=== PATIENT | male | born 1980 | race African-American/Black ===

== ENCOUNTER 2020-02-12 15:31 | Emergency (ER) | payer MEDICAID, SELFPAY ==
--- NOTE | 2020-02-12 15:55 | ED.GENADULT ---
HPI - General Adult General Chief complaint: Dental/Oral Stated complaint: tooth pain Time Seen by Provider: 02/12/20 16:34 Source: patient Mode of arrival: ambulatory Limitations: no limitations History of Present Illness HPI narrative: 40-year-old male patient presents to the [facility] with complaints of dental pain to the bottom left back molar. Patient states he thinks his tooth broke off and since there has been having pain for the past 2 weeks. Patient states he has been taking [id number] Tylenol states has not helped much. Patient denies any fevers, body aches or chills. Related Data Allergies Allergy/AdvReac Type Severity Reaction Status Date / Time No Known Allergies Allergy Unknown Verified 05/17/18 13:34 Review of Systems Review of Systems: Narrative: CONSTITUTIONAL: Denies fever, chills, or sweats. EYES: Denies visual changes, redness, or discharge. ENT: Denies rhinorrhea, congestion, sore throat, or otalgia. Positive left lower dental pain x2 weeks CARDIOVASCULAR: Denies chest pain, palpitations, or edema. RESPIRATORY: Denies cough or dyspnea. GASTROINTESTINAL: Denies abdominal pain, nausea, vomiting, or diarrhea. GENITOURINARY: Denies dysuria or hematuria. SKIN: Denies rash or itching. MUSCULOSKELETAL: Denies back pain, joint pain, or myalgia. NEUROLOGIC: Denies headache, numbness, or weakness. PSYCHIATRIC: Denies anxiety or depression. PMFSH Comments At the time of my signature I agree with nursing past medical history, surgical, social, and family history. There is no relevant family history pertinent to the presenting complaint. Exam Narrative: Exam Narrative: GENERAL: Well-appearing, well-nourished, and in no acute distress. HEAD: Normocephalic, atraumatic. EYES: PERRLA and EOMI. ENT: Nares clear, no rhinorrhea or epistaxis. Mucous membranes moist. Patient does have a broken tooth to the back left lower molar with surrounding erythema and it looks like some yellow discharge coming from the tooth area. No swelling noted to the outside of the face. Patient able talk in clear complete sentences and tolerate secretions well. NECK: Supple. No lymphadenopathy CHEST: Clear to auscultation. No respiratory distress. HEART: Regular rate and rhythm. No murmur heard. Normal peripheral pulses. ABDOMEN: Soft, nontender, nondistended, normal active bowel sounds. EXTREMITIES: Normal range of motion. No edema. SKIN: Warm, dry, no rash. NEURO: No focal deficits. Alert and oriented x3. Course Vital Signs Vital signs: Vital Signs Temperature 37.2 C 02/12/20 15:59 Pulse Rate 62 02/12/20 15:59 Respiratory Rate 02/12/20 15:59 Blood Pressure 126/77 02/12/20 15:59 Pulse Oximetry 100 02/12/20 15:59 Temperature 37.2 C 02/12/20 15:59 Pulse Rate 62 02/12/20 15:59 Respiratory Rate 02/12/20 15:59 Blood Pressure 126/77 02/12/20 15:59 Pulse Oximetry 100 02/12/20 15:59 Vital signs reviewed. Medical Decision Making Differential Diagnosis Differential Diagnosis: Differential diagnosis: Dental caries, periodontal disease, avulsed tooth, tooth infections, mandibular infection, Heriberto's angiana, upper tooth infection, dry socket, gingivitis, acute necrotizing ulcerative gingivitis, sialolithiasis. Discussed with patient that it does appear that he is most likely a dental abscess. Discussed with him that our plan of care today is to discharge him home with an antibiotic for the infection as well as little bit of tramadol help with the pain. Dental list was provided to the patient so that he can follow-up in regards to extracting that tooth. Patient verbalized understanding at this time denies any other questions or concerns. Vital Signs Vital Signs: Vital Signs Temperature 37.2 C 02/12/20 15:59 Pulse Rate 62 02/12/20 15:59 Respiratory Rate 02/12/20 15:59 Blood Pressure 126/77 02/12/20 15:59 Pulse Oximetry 100 02/12/20 15:59 Temperature 37.2 C 02/12/20
[2020-02-12 15:59] VITALS: BP 126/77; PULSE 62; RESP 20; TEMP 37.2; O2SAT 100
== END 2020-02-12 16:41 | disposition home or self-care (01) ==
PROVIDERS: Emergency Provider Nurse Practitioner Family
DX: K04.7 Periapical abscess without sinus (principal)
CPT/HCPCS: 99213; G0463

== ENCOUNTER 2021-08-29 15:39 | Emergency (ER) | payer BC, SELFPAY ==
[2021-08-29 15:49] VITALS: BP 130/74; PULSE 58; RESP 16; TEMP 36.7; O2SAT 100
--- NOTE | 2021-08-29 15:49 | ED.DENTAL ---
HPI - Dental/Oral General Chief complaint: Dental/Oral Stated complaint: Tooth Pain Time Seen by Provider: 08/29/21 15:49 Source: patient, RN notes reviewed and old records reviewed Mode of arrival: ambulatory Limitations: no limitations History of Present Illness HPI Narrative: 41-year-old male presents to the [facility] with complaints of dental pain to the right upper molar. Has very poor dentition. Has not seen a dentist in a long time. States he has an appointment [facility] on , 3 days from now. Patient is requesting stronger pain medicine than just Tylenol. Related Data Allergies Allergy/AdvReac Type Severity Reaction Status Date / Time No Known Allergies Allergy Unknown Verified 08/29/21 15:58 Review of Systems Review of Systems: All systems reviewed & are unremarkable except as noted in HPI and below Constitutional: Constitutional: Reports no additional constitutional complaints, Denies chills and Denies fever(s) Eyes: Eyes: Reports no additional eye complaints ENT: Reports as per HPI and Denies sore throat Comments: Right upper dental pain, molars Cardiovascular: Cardiovascular: Reports no additional cardiovascular complaints and Denies chest pain Respiratory: Respiratory: Reports no additional respiratory complaints, Denies cough and Denies dyspnea Gastrointestinal: Gastrointestinal: Reports no additional gastrointestinal complaints, Denies abdominal pain, Denies nausea and Denies vomiting Musculoskeletal: Musculoskeletal: Reports no additional musculoskeletal complaints Integumentary/Breasts: Skin/Breast: Reports system reviewed and no additional complaints, except as docu Neurologic: Reports system reviewed and no additional complaints, except as documented Psychiatric: Psychiatric: Reports no additional psychiatric complaints Allergic/Immunologic: Allergic/Immunologic: Reports no additional allergic/immunologic complaints Exam Const: General: healthy appearing, no acute distress and alert Nutritional Appearance: well nourished Orientation/consciousness: patient oriented x3 Limitations: no limitations HENMT: Head: normal to inspection Ears: external ears normal, TM's normal bilaterally and EAC's normal Teeth image: 1. Decayed, swollen gingiva. Gingiva is receding, roots noted on tooth 2 and 3 with decay at the root Overall very poor dentition Throat: posterior oropharynx normal Eyes: Conjunctivae: conjunctivae normal Pupils: Equal, round and reactive pupils present Neck: Neck: normal visual inspection, no lymphadenopathy and no meningeal signs Chest: Chest palpation & inspection: normal inspection of the chest Resp: Effort & Inspection: normal respiratory effort Auscultation: clear to auscultation bilaterally Cardio: Rate: regular rate Rhythm: regular rhythm Back/Spine/Pelvis: Back: no CVA tenderness Skin: General skin exam: normal color Rashes: no rashes Wounds: no wounds Neuro: General: patient oriented x3, moves all extremities, no meningeal signs and no focal motor deficits Speech: normal speech Gait exam (Neuro): Normal gait present Extrem: General: normal to inspection and no pedal edema Psych: Appearance: grossly normal and well kempt Mental Status: mental status grossly normal Affect: normal affect Attitude: cooperative Thought content: Yes Normal thought content present Course Course Emergency Course: Discharge instructions reviewed with patient, as well as provided in writing per nursing staff. The instructions also include specific and strict return/GO TO THE ER as well as f/u information. All questions have been answered, and the patient deny any further questions with discharge and discharge plan. Vital Signs Vital signs: Vital Signs Temperature 98.1 F 08/29/21 15:49 Pulse Rate 58 L 08/29/21 15:49 Respiratory Rate 16 08/29/21 15:49 Blood Pressure 130/74 08/29/21 15:49 Pulse Oximetry 100 08/29/21 15:49 Temper
[2021-08-29] MEDS: IBUPROFEN 600 MG TABLET PO (16:02)
== END 2021-08-29 16:04 | disposition home or self-care (01) ==
PROVIDERS: Emergency Provider Nurse Practitioner
DX: K02.9 Dental caries, unspecified (principal); K04.7 Periapical abscess without sinus
CPT/HCPCS: 99213; A9270; G0463

== ENCOUNTER 2022-01-28 16:46 | Emergency (ER) | payer BC, SELFPAY ==
[2022-01-28 17:03] VITALS: BP 122/79; PULSE 67; RESP 16; TEMP 36.6; O2SAT 99
--- NOTE | 2022-01-28 17:13 | ED.DENTAL ---
HPI - Dental/Oral General Chief complaint: Dental/Oral Stated complaint: TOOTH PAIN Time Seen by Provider: 01/28/22 17:14 Source: patient Mode of arrival: ambulatory Limitations: no limitations History of Present Illness HPI Narrative: Mr. Martínez is a 41-year-old male patient presenting to the clinic today with complaints of dental pain to the right lower jaw/tooth #17. He reports that this has been going on and off for the past couple years and has been unable to see a dentist for this. He reports that he has an appointment this week for the dentist just down the road. He reports that he noted that his jaw/gum started to swell within the last 3 days. He denies any fever or chills. MD Complaint: tooth pain Location: Tooth # (17) Related Data Allergies Allergy/AdvReac Type Severity Reaction Status Date / Time No Known Allergies Allergy Unknown Verified 01/28/22 17:16 Review of Systems Review of Systems: Pertinent positives per HPI. Patient denies any fever, chills, rash, headache, visual changes, dizziness, cough, runny nose, sore throat, shortness of breath, chest pain, palpitations, nausea, vomiting, diarrhea, constipation, abdominal pain, or any urinary issues. PMFSH Comments At the time of my signature, I reviewed and agree with the nursing past medical, surgical, social, and family history. There is no relevant family history pertinent to the patient complaint. Exam Narrative: General: Well-developed, well nourished, in no apparent distress Head: Normocephalic, atraumatic Eyes: Pupils equally round and reactive to light bilaterally, EOM intact, sclera and conjunctive clear, no discharge, lids normal Ears: TMs intact and clear, ear canals clear, no drainage, grossly hearing normal. Nose: Nares patent, no discharge, no inflammation, no sinus tenderness. Mouth: Oropharynx without lesions or masses, poor dentition, MMM. #17 tooth broken decayed with redness and swelling over the gums. Neck: Supple, trachea midline, no enlargement of anterior or posterior cervical nodes, no thyroid masses or goiter palpable. Cardio: Regular rate and rhythm, s1 and s2 normal, no murmur appreciated. Resp: Clear to auscultation bilaterally anteriorly and posteriorly, no rhonchi, rales, wheezing or rubs Course Course Emergency Course: Portions of this record may have been created with voice recognition software. Level of Care: Express Care Visit Vital Signs Vital signs: Vital Signs Temperature 36.6 C 01/28/22 17:03 Pulse Rate 67 01/28/22 17:03 Respiratory Rate 16 01/28/22 17:03 Blood Pressure 122/79 01/28/22 17:03 Pulse Oximetry 99 01/28/22 17:03 Temperature 36.6 C 01/28/22 17:03 Pulse Rate 67 01/28/22 17:03 Respiratory Rate 16 01/28/22 17:03 Blood Pressure 122/79 01/28/22 17:03 Pulse Oximetry 99 01/28/22 17:03 Vital signs reviewed MDM - Dental/Oral MDM Narrative Medical decision making narrative: At the time of assessment patient is resting comfortably on the exam table. He reports that he has left lower dental pain that has been ongoing going on for 3 days. He has some jaw swelling. I suspect that he may have the beginning of a dental abscess and will give him prescription for some Augmentin. He is to finish the course of Augmentin and follow-up with his dentist. Supportive measures were discussed with patient he voiced understanding of discharge instructions. Differential Diagnosis Differential diagnosis: Likely gingival abscess, dental caries, toothache, dental abscess, fracture of tooth, aphthous ulcer and other Discharge Plan Discharge Clinical Impression: Dental abscess Patient Disposition: Home, Self-Care Condition: Stable Instructions: Antibiotic Form, Dental Abscess (ED) Additional Instructions: Take prescription medications only as prescribed Increase fluids and stay well hydrated Tylenol/motrin for pain/fever Augmentin as RX Follow up with your dentist a
== END 2022-01-28 17:30 | disposition home or self-care (01) ==
PROVIDERS: Emergency Provider Nurse Practitioner Family
DX: K04.7 Periapical abscess without sinus (principal)
CPT/HCPCS: 99213; G0463

== ENCOUNTER 2022-05-12 14:41 | Emergency (ER) | payer BC, SELFPAY ==
[2022-05-12 14:50] VITALS: BP 119/76; PULSE 62; RESP 16; TEMP 37; O2SAT 99
--- NOTE | 2022-05-12 14:51 | ED.DENTAL ---
HPI - Dental/Oral General Chief complaint: Dental/Oral Stated complaint: tooth pain Time Seen by Provider: 05/12/22 14:52 Source: patient Mode of arrival: ambulatory History of Present Illness HPI Narrative: 42 y/o male presented for c/o right upper dental pain for 3 days. Endorses history of abscesses. States the gum area has felt swollen with mild pain, no drainage. Has not taken anything for symptoms. Denies sinus pressure/congestion, n/v/d/f/c. Complaint: tooth pain Related Data Allergies Allergy/AdvReac Type Severity Reaction Status Date / Time No Known Allergies Allergy Unknown Verified 05/12/22 14:50 Review of Systems Review of Systems: CONSTITUTIONAL: Denies body aches, fever, chills ENT: Denies rhinorrhea, congestion, sore throat, or otalgia. Reports dental pain CARDIOVASCULAR: Denies chest pain, palpitations RESPIRATORY: Denies cough or dyspnea. SKIN: Denies rash, itching, or wounds. MUSCULOSKELETAL: Denies myalgia. NEUROLOGIC: Denies headache, numbness, tingling, or weakness. PMFSH Comments At time of signature, I have reviewed and agree with nursing past medical, surgical, social and family history unless otherwise noted. Please see nursing chart for further information. There is no relevant family history pertinent to the presenting complaint Exam Narrative: GENERAL: Appears in pain; no acute distress. HEAD: Normocephalic, atraumatic. EYES: EOMI. No redness or drainage. Conjunctivae normal. ENT: Right upper dental pain location of #3 mild gum swelling no active drainage, multiple caries and plaque extending above the gum line. Mucous membranes pink and moist. CHEST: No respiratory distress. SKIN: Warm, dry no facial redness/swelling Course Course Emergency Course: Patient is aware of diagnosis, understands and agrees to treatment plan. Anticipatory guidance given. Patient agrees to follow-up as directed and is aware of reasons to seek care at the emergency department. Portions of this record may have been created with voice recognition software Level of Care: Express Care Visit Vital Signs Vital signs: Vital Signs Temperature 98.6 F 05/12/22 14:50 Pulse Rate 62 05/12/22 14:50 Respiratory Rate 16 05/12/22 14:50 Blood Pressure 119/76 05/12/22 14:50 Pulse Oximetry 99 05/12/22 14:50 Oxygen Delivery Room Air 05/12/22 14:50 Temperature 98.6 F 05/12/22 14:50 Pulse Rate 62 05/12/22 14:50 Respiratory Rate 16 05/12/22 14:50 Blood Pressure 119/76 05/12/22 14:50 Pulse Oximetry 99 05/12/22 14:50 Oxygen Delivery Room Air 05/12/22 14:50 MDM - Dental/Oral MDM Narrative Medical decision making narrative: Patients pain and complaint and physical findings are consistent with dentalgia. advised supportive measures, abx if no improvement or worsening symptoms. appropriate for discharge home with dental follow up. Differential Diagnosis Differential diagnosis: Likely gingival abscess, dental caries, toothache, dental abscess, fracture of tooth and aphthous ulcer Discharge Plan Discharge Clinical Impression: Toothache Patient Disposition: Home, Self-Care Condition: Stable Instructions: Antibiotic Form, Dental Abscess (ED) Additional Instructions: Take antibiotic as directed May apply heat or ice to the face Gentle brushing and flossing. Rinse mouth with warm salt water at least 2 times a day. Alternate Tylenol and ibuprofen as needed for pain Follow-up with the dentist as soon as possible--see the list provided Go to the ER for worsening symptoms or concerns. Prescriptions: New ibuprofen 800 mg tablet 800 mg PO TID PRN (Reason: pain) Qty: 15 0RF penicillin V potassium 500 mg tablet 500 mg PO Q12H 7 Days Qty: 14 0RF Follow-up/Referrals: UNKNOWN,DOCTOR [Primary Care Provider] - Time of Disposition: 15:00
== END 2022-05-12 15:02 | disposition home or self-care (01) ==
PROVIDERS: Emergency Provider Nurse Practitioner Family
DX: K08.89 Other specified disorders of teeth and supporting structures (principal)
CPT/HCPCS: 99213; G0463

== ENCOUNTER 2022-05-20 10:27 | Emergency (ER) | payer BC, SELFPAY ==
[2022-05-20 10:58] VITALS: BP 127/85; PULSE 53; RESP 16; TEMP 36.1; O2SAT 99
--- NOTE | 2022-05-20 11:35 | ED.DENTAL ---
HPI - Dental/Oral General Chief complaint: Dental/Oral Stated complaint: tooth pain Time Seen by Provider: 05/20/22 11:35 History of Present Illness HPI Narrative: Asim Martínez is a 42 yo male with a PMH of dental pain recurrent. [facility] for pain medication stronger than ibuprofen. He states he does not need any additional antibiotics and the pain is on the right upper molar which is tooth 12 and left lower tooth 30 both appear to be old fractured teeth that we will need extraction has an appt with dentist on 06/20 Related Data Allergies Allergy/AdvReac Type Severity Reaction Status Date / Time No Known Allergies Allergy Unknown Verified 05/20/22 11:00 Review of Systems Review of Systems: CONSTITUTIONAL: Denies fever, chills, sweats. EYES: Denies visual changes, redness, discharge. ENT: Denies rhinorrhea, congestion, sore throat, otalgia. CARDIOVASCULAR: Denies chest pain, palpitations, edema. RESPIRATORY: Denies dyspnea, wheezing, cough GASTROINTESTINAL: Denies abdominal pain, nausea, vomiting, diarrhea. GENITOURINARY: Denies dysuria, hematuria, abnormal discharge SKIN: Denies rash or itching. NEUROLOGIC: Denies numbness, or focal weakness. PSYCHIATRIC: Denies anxiety or depression. Needs more meds for Dental pain PMFSH Social History Social History (Updated 05/20/22 @ 11:41 by Sofia Montes CNP) Smoking status: Current every day smoker Substance use: never Comments At time of signature, I agree with nursing past medical, surgical, social and family history. There is no relevant family history pertinent to the presenting complaint. Exam Narrative: GENERAL: This is a well-nourished, well-developed patient, in mild distress. HEAD: normocephalic, atraumatic. EYES: Sclera clear/white. Vision is grossly intact. EARS: External ears normal, auditory canals clear and without drainage, TMs normal without perforation. Hearing grossly intact. NOSE: External nose normal without nasal discharge, nares without redness, no rhinorrhea. THROAT: Mucous membranes moist, poor dentition throughout mouth with multiple problems with fractures and missing teeth NECK: Neck supple, non-tender CARDIOVASCULAR: Regular rate and rhythm without murmurs, gallops, or rubs. RESPIRATORY: Clear to auscultation. Breath sounds equal bilaterally. No wheezes, rales, or rhonchi. GASTROINTESTINAL: Abdomen soft, non-tender, SKIN: warm, intact with no suspicious lesions or rash, good texture and turgor. NEURO: awake, alert, and oriented to person, place and time. There were no obvious focal neurologic abnormalities. Steady gait EXTREMITIES: Normal range of motion. BACK: Nontender without deformity Course Course Emergency Course: Patient comes with dental pain and has been on antibiotics for 8 days and needs something stronger than Tylenol or ibuprofen for pain Discussed situation with patient and agreed to write for Tylenol 3 Level of Care: Express Care Visit Vital Signs Vital signs: Vital Signs Temperature 96.9 F L 05/20/22 10:58 Pulse Rate 53 L 05/20/22 10:58 Respiratory Rate 16 05/20/22 10:58 Blood Pressure 127/85 05/20/22 10:58 Pulse Oximetry 99 05/20/22 10:58 Oxygen Delivery Room Air 05/20/22 10:58 Temperature 96.9 F L 05/20/22 10:58 Pulse Rate 53 L 05/20/22 10:58 Respiratory Rate 16 05/20/22 10:58 Blood Pressure 127/85 05/20/22 10:58 Pulse Oximetry 99 05/20/22 10:58 Oxygen Delivery Room Air 05/20/22 10:58 MDM - Dental/Oral Differential Diagnosis Differential diagnosis: Likely gingival abscess, dental caries, dental abscess, fracture of tooth and other Critical Care Time Critical Care Time Critical Care Time: No Discharge Plan Discharge Clinical Impression: Fracture of tooth, Dental abscess Patient Disposition: Home, Self-Care Condition: Stable Instructions: Dental Abscess (ED) Additional Instructions: Use Tylenol 3 for pain. Pain should improve with the a
== END 2022-05-20 11:54 | disposition home or self-care (01) ==
PROVIDERS: Emergency Provider Nurse Practitioner
DX: S02.5XXA Fracture of tooth (traumatic), initial encounter for closed fracture (principal); X58.XXXA Exposure to other specified factors, initial encounter; K04.7 Periapical abscess without sinus; F17.200 Nicotine dependence, unspecified, uncomplicated
CPT/HCPCS: 99213; G0463

== ENCOUNTER 2022-08-29 15:05 | Emergency (ER) | payer BC, SELFPAY | END 2022-08-29 16:02 | disposition left against medical advice (07) | LOC: ANHED 15:42 | DX: Z53.21 Procedure and treatment not carried out due to patient leaving prior to being seen by health care provider (principal) | CPT/HCPCS: 99199 ==

== ENCOUNTER 2022-09-04 11:29 | Emergency (ER) | payer BC, SELFPAY ==
[2022-09-04 11:35] VITALS: BP 120/75; PULSE 76; RESP 12; TEMP 36.4; O2SAT 100
--- NOTE | 2022-09-04 11:36 | ED.GENADULT ---
HPI - General Adult General Chief complaint: Back Pain/Injury Stated complaint: Back Pain Time Seen by Provider: 09/04/22 11:36 Source: patient, RN notes reviewed and old records reviewed Mode of arrival: ambulatory Limitations: no limitations History of Present Illness HPI narrative: [age] male presents to the [facility] with complaints of right lower back pain. Denies any loss retention of bowel or bladder. No numbness or tingling in extremities. No saddle anesthesia. Walks with a normal gait. Patient states on August 20 he got her shoveling. Was transported to [facility] where he had a whole bunch of ?tests. ? patient reports all those tests were normal and he was sent home and told to take Tylenol or Motrin. States that he has been taking Tylenol and not getting any relief. Has not followed up with her primary care provider. No midline tenderness. No bruising swelling or erythema noted to the area. Unable to reproduce pain with palpation Onset (ago): day(s) Related Data Allergies Allergy/AdvReac Type Severity Reaction Status Date / Time No Known Allergies Allergy Unknown Verified 09/04/22 11:31 Review of Systems Review of Systems: All systems reviewed & are unremarkable except as noted in HPI and below Constitutional: Constitutional: Reports no additional constitutional complaints Eyes: Eyes: Reports no additional eye complaints ENT: Reports system reviewed and no additional complaints, except as documented Cardiovascular: Cardiovascular: Reports no additional cardiovascular complaints, Denies chest pain and Denies dyspnea Respiratory: Respiratory: Reports no additional respiratory complaints, Denies chest congestion, Denies cough and Denies dyspnea Gastrointestinal: Gastrointestinal: Reports no additional gastrointestinal complaints, Denies abdominal pain, Denies nausea and Denies vomiting Musculoskeletal: Musculoskeletal: Reports as per HPI and Reports back pain (Right lower) Integumentary/Breasts: Skin/Breast: Reports system reviewed and no additional complaints, except as docu Neurologic: Reports system reviewed and no additional complaints, except as documented Psychiatric: Psychiatric: Reports no additional psychiatric complaints Allergic/Immunologic: Allergic/Immunologic: Reports no additional allergic/immunologic complaints PMFSH Social History Social History Smoking status: Current every day smoker Substance use: never Comments At the time of my signature, I reviewed and agree with the nursing past medical, surgical, social, and family history. There is no relevant family history pertinent to the patient complaint. Exam Const: General: cooperative, healthy appearing, comfortable, no acute distress, well developed, alert and well nourished Nutritional Appearance: well nourished Orientation/consciousness: patient oriented x3 Limitations: no limitations HENMT: Head: normal to inspection Ears: hearing grossly normal bilaterally and external ears normal Face/Nose/Sinus: Normal external nose present, Normal nares present, Normal nasal mucous membranes and turbinates present and normal facial exam Face and sinus: normal facial exam Mouth: Yes Normal oral and palatal mucosa present, Yes lip normal and Yes moist mucous membranes Eyes: General: appearance normal, both eyes and all related structures Alignment and Position: alignment normal Periorbital: periorbital findings normal Conjunctivae: conjunctivae normal Pupils: Equal, round and reactive pupils present EOM: EOMs intact bilaterally Neck: Neck: normal visual inspection, full ROM, no lymphadenopathy and no meningeal signs Chest: Chest palpation & inspection: normal inspection of the chest Resp: Effort & Inspection: normal respiratory effort and able to speak in complete sentences Auscultation: clear to auscultation bilaterally, no crackles, no rales, no rhonchi and n
== END 2022-09-04 12:07 | disposition home or self-care (01) ==
PROVIDERS: Emergency Provider Nurse Practitioner
DX: S39.012A Strain of muscle, fascia and tendon of lower back, initial encounter (principal); X50.3XXA Overexertion from repetitive movements, initial encounter; Y93.H1 Activity, digging, shoveling and raking; F17.200 Nicotine dependence, unspecified, uncomplicated
CPT/HCPCS: 99213; G0463

== ENCOUNTER 2022-09-22 00:05 | Emergency (ER) | payer BC, SELFPAY ==
[2022-09-22 00:07] VITALS: BP 127/79; PULSE 69; RESP 18; TEMP 36.2; O2SAT 100
--- NOTE | 2022-09-22 00:14 | PC.NURSE ---
Pt was diagnosed with lumbar sprain one month ago while he was shoveling snow at work. He ran out of his baclofen and tylenol #3 and is requesting refills. He ambulates with steady gait. Denies numbness/tingling or loss bowel/bladder.
--- NOTE | 2022-09-22 00:18 | ED.BACK ---
HPI - Back Pain/Injury General Chief Complaint: Back Pain/Injury Stated Complaint: back pain Time Seen by Provider: 09/22/22 00:11 Source: patient, RN notes reviewed and old records reviewed Mode of arrival: ambulatory Limitations: no limitations History of Present Illness HPI Narrative: This is a 42 year old male who presents for evaluation of low back pain. Patient reports several weeks ago he developed low back pain with some heavy lifting. He had evaluation at [facility] at onset of pain and per records everything was normal. She was seen at [facility] 2 weeks ago and he was prescribed ibuprofen and baclofen. He states he does not take ibuprofen because it upsets his stomach. He has been taking old prescription of tylenol with codeine and baclofen. He has come to ER for prescription of baclofen because he has run out. He states his pain is worse with movement. HE denies saddle anesthesis, weakness, numbness or tingling. He also denies urinary issues .H Related Data Allergies Allergy/AdvReac Type Severity Reaction Status Date / Time No Known Allergies Allergy Unknown Verified 09/04/22 11:31 Review of Systems Review of Systems: All systems reviewed & are unremarkable except as noted in HPI and below Constitutional: Constitutional: Denies fatigue and Denies fever(s) Eyes: Eyes: Denies blurry vision ENT: Denies nasal congestion and Denies sinus pressure Cardiovascular: Cardiovascular: Denies chest pain, Denies rapid heart rate, Denies leg edema and Denies dyspnea Respiratory: Respiratory: Denies hemoptysis and Denies dyspnea Gastrointestinal: Gastrointestinal: Denies abdominal pain and Denies melena Musculoskeletal: Musculoskeletal: Reports back pain and Denies numbness Neurologic: Denies Abnormal speech present, Denies focal weakness and Denies numbness Endocrine: Endocrine: Denies fatigue PMFSH Past Medical History Medical History (Updated 09/22/22 @ 00:25 by Linda Flores MD) Patient denies medical problems Social History Social History Smoking status: Current every day smoker Substance use: never Exam Const: General: healthy appearing, no acute distress and alert Nutritional Appearance: well nourished Orientation/consciousness: patient oriented x3 Limitations: no limitations HENMT: Head: normal to inspection Eyes: Conjunctivae: conjunctivae normal Resp: Effort & Inspection: normal respiratory effort Auscultation: clear to auscultation bilaterally Cardio: Rate: regular rate Rhythm: regular rhythm Heart sounds: no murmurs GI: GI Palp: Yes Soft to palpation, No Tenderness to palpation present (GI), No Guarding due to palpation present (GI) and Yes Rigid due to palpation Auscultation: normal bowel sounds Back/Spine/Pelvis: Thoracic/Lumbar Spine: No thoracic spinal tenderness and No lumbar spinal tenderness Skin: General skin exam: normal color Rashes: no rashes Wounds: no wounds Neuro: General: patient oriented x3, moves all extremities and CN's II-XI intact bilaterally Speech: normal speech Gait exam (Neuro): Normal gait present Extrem: General: normal to inspection Psych: Mental Status: mental status grossly normal Affect: normal affect Attitude: cooperative Course Reevaluation(s) Reevaluation #1: I discussed with patient that he will need to follow and get established for evaluation of chronic back at this point. He does not seem to have trauma to suggest fracture. Date: 09/22/22 Time: 00:23 Vital Signs Vital signs: Vital Signs Temperature 97.1 F L 09/22/22 00:07 Pulse Rate 69 09/22/22 00:07 Respiratory Rate 18 09/22/22 00:07 Blood Pressure 127/79 09/22/22 00:07 Pulse Oximetry 100 09/22/22 00:07 Oxygen Delivery Room Air 09/22/22 00:07 Temperature 97.1 F L 09/22/22 00:07 Pulse Rate 77 09/22/22 00:38 Respiratory Rate 16 09/22/22 00:38 Blood Pressure 135/83 09/22/22 00:38 Puls
[2022-09-22 00:38] VITALS: BP 135/83; PULSE 77; RESP 16; O2SAT 99
== END 2022-09-22 00:39 | disposition home or self-care (01) ==
LOC: ANHED 00:32
PROVIDERS: Emergency Provider General Practice
DX: M54.50 Low back pain, unspecified (principal); F17.200 Nicotine dependence, unspecified, uncomplicated
CPT/HCPCS: 99283

== ENCOUNTER 2023-06-27 15:30 | Emergency (ER) | payer BC, SELFPAY ==
[2023-06-27 15:42] VITALS: BP 117/72; PULSE 57; RESP 16; TEMP 36.9; O2SAT 100
[2023-06-27 15:44] VITALS: BP 117/72; PULSE 57; RESP 16; TEMP 36.9; O2SAT 100
--- NOTE | 2023-06-27 16:02 | ED.DENTAL ---
HPI - Dental/Oral General Chief complaint: Dental/Oral Stated complaint: left tooth pain Time Seen by Provider: 06/27/23 15:54 Source: patient Mode of arrival: ambulatory History of Present Illness HPI Narrative: 43-year-old male presented for complaint of left lower dental pain for about 2 days. Endorses broken tooth at the site. He states the pain is mild, not requiring anything for symptoms. Scheduled with dentist next week. Denies jaw swelling, pus/drainage, n/v/d/f/c. Smokes 1ppd. MD Complaint: tooth pain Related Data Allergies Allergy/AdvReac Type Severity Reaction Status Date / Time No Known Allergies Allergy Unknown Verified 06/27/23 15:43 Review of Systems Review of Systems: CONSTITUTIONAL: Denies body aches, fever, chills ENT: Denies rhinorrhea, congestion, sore throat, or otalgia. Reports dental pain CARDIOVASCULAR: Denies chest pain, palpitations RESPIRATORY: Denies cough or dyspnea. SKIN: Denies rash, itching, or wounds. MUSCULOSKELETAL: Denies myalgia. NEUROLOGIC: Denies headache, numbness, tingling, or weakness. [facility] Past Medical History Medical History Patient denies medical problems Social History Social History Smoking status: Current every day smoker Substance use: never Comments At time of signature, I have reviewed and agree with nursing past medical, surgical, social and family history unless otherwise noted. Please see nursing chart for further information. There is no relevant family history pertinent to the presenting complaint Exam Narrative: GENERAL: Appears in pain; no acute distress. HEAD: Normocephalic, atraumatic. EYES: EOMI. No redness or drainage. Conjunctivae normal. ENT: Dental pain location of #18, gum swelling surrounding broken and discolored tooth at the site. no drainage. No external mandible swelling. Multiple broken and missing teeth. Missing approx #19-21. Mucous membranes pink and moist. TMs normal bilaterally. Throat normal. Uvula midline. No trismus. NECK: Normal AROM. No lymphadenopathy. CHEST: No respiratory distress. Clear to auscultation. HEART: Regular rate and rhythm. No murmur appreciated. SKIN: Warm, dry, no rash. Normal skin turgor. NEURO: No focal deficits. Alert and oriented x3. Gait steady. Course Course Emergency Course: Patient is aware of diagnosis, understands and agrees to treatment plan. Anticipatory guidance given. Patient agrees to follow-up as directed and is aware of reasons to seek care at the emergency department. Portions of this record may have been created with voice recognition software Level of Care: Express Care Visit Vital Signs Vital signs: Vital Signs Temperature 98.4 F 06/27/23 15:42 Pulse Rate 57 L 06/27/23 15:42 Respiratory Rate 16 06/27/23 15:42 Blood Pressure 117/72 06/27/23 15:42 Pulse Oximetry 100 06/27/23 15:42 Oxygen Delivery Room Air 06/27/23 15:42 Temperature 98.4 F 06/27/23 15:44 Pulse Rate 57 L 06/27/23 15:44 Respiratory Rate 16 06/27/23 15:44 Blood Pressure 117/72 06/27/23 15:44 Pulse Oximetry 100 06/27/23 15:44 Oxygen Delivery Room Air 06/27/23 15:44 MDM - Dental/Oral MDM Narrative Medical decision making narrative: Patients pain and complaint and physical findings are consistent with dental abscess There are no focal signs of space occupying lesions that are compromising to the airway; no dysphagia, odynophagia, dysphonia, or dyspnea. No uvular deviation or soft palate edema. Patient is non-toxic appearing. The floor of the mouth is soft with no signs of Heriberto's Angina; no induration below mandible, no neck pain. Patient is without trismus or drooling and able to swallow secretions. Advised signs symptoms to go to the ER. Patient is felt appropriate for discharge home with dental follow up as scheduled. Differential Diagn
== END 2023-06-27 16:09 | disposition home or self-care (01) ==
PROVIDERS: Emergency Provider Nurse Practitioner Family
DX: K04.7 Periapical abscess without sinus (principal); F17.200 Nicotine dependence, unspecified, uncomplicated
CPT/HCPCS: 99213; G0463

== ENCOUNTER 2023-09-15 00:54 | Emergency (ER) | payer BC, SELFPAY ==
[2023-09-15 00:59] VITALS: BP 121/78; PULSE 63; RESP 14; TEMP 36.3; O2SAT 99
--- NOTE | 2023-09-15 01:47 | ED.GENADULT ---
HPI - General Adult General Chief complaint: Nausea/Vomiting/Diarrhea Stated complaint: Diarrhea, runny nose, weak, headache Time Seen by Provider: 09/15/23 01:38 History of Present Illness HPI narrative: 43-year-old male presented to the emergency department for evaluation of runny nose, sore throat and congestion. Patient states that the symptoms started last night while he was at work and persisted at the day today. Patient denies any chest pain or shortness of breath denies any fevers. Patient reports his son has similar symptoms and 1 of his coworkers was also sick. Patient has not taken Tylenol or ibuprofen. Related Data Allergies Allergy/AdvReac Type Severity Reaction Status Date / Time No Known Allergies Allergy Unknown Verified 06/27/23 15:43 Review of Systems Review of Systems: All systems reviewed & are unremarkable except as noted in HPI and below PMFSH Past Medical History Medical History Patient denies medical problems Social History Social History Smoking status: Current every day smoker Substance use: never Exam Narrative: APPEARANCE: Well appearing, no pain, no distress, well-nourished. HEAD: normocephalic, atraumatic. EYES: PERRLA/EOMI, conjunctivae clear. NOSE: Normal no drainage EARS:TMS clear with good light reflex. THROAT: Pharynx clear, no exudate. NECK: Supple. No adenopathy, no masses. RESPIRATORY: Airway patent, respirations nonlabored. Clear to auscultation bilaterally, no rales, rhonchi, wheezing. CARDIOVASCULAR: Regular rate and rhythm without murmurs rubs or gallops. ABDOMINAL: Soft, nontender, nondistended, normal bowel sounds MUSCULOSKELETAL: Moves all extremities. Strength/ROM intact, No edema, No calf tenderness. NEURO: Alert. Cranial nerves II through XII intact. Grossly intact SKIN: Warm, dry. Normal Color Course Course Emergency Course: 43-year-old male presented the ED for evaluation for nasal congestion and body aches patient has influenza RSV and COVID were negative Vital Signs Vital signs: Vital Signs Temperature 97.3 F L 09/15/23 00:59 Pulse Rate 63 09/15/23 00:59 Respiratory Rate 14 09/15/23 00:59 Blood Pressure 121/78 09/15/23 00:59 Pulse Oximetry 99 09/15/23 00:59 Oxygen Delivery Room Air 09/15/23 00:59 Temperature 97.3 F L 09/15/23 00:59 Pulse Rate 63 09/15/23 00:59 Respiratory Rate 14 09/15/23 00:59 Blood Pressure 121/78 09/15/23 00:59 Pulse Oximetry 99 09/15/23 00:59 Oxygen Delivery Room Air 09/15/23 00:59 Medical Decision Making Vital Signs Vital Signs: Vital Signs Temperature 97.3 F L 09/15/23 00:59 Pulse Rate 63 09/15/23 00:59 Respiratory Rate 14 09/15/23 00:59 Blood Pressure 121/78 09/15/23 00:59 Pulse Oximetry 99 09/15/23 00:59 Oxygen Delivery Room Air 09/15/23 00:59 Temperature 97.3 F L 09/15/23 00:59 Pulse Rate 63 09/15/23 00:59 Respiratory Rate 14 09/15/23 00:59 Blood Pressure 121/78 09/15/23 00:59 Pulse Oximetry 99 09/15/23 00:59 Oxygen Delivery Room Air 09/15/23 00:59 Lab Data Lab results reviewed: Yes I reviewed the patient's lab results. Labs: Lab Results 09/15/23 Range/Units 01:37 Influenza A (RT-PCR) Negative (Negative) Influenza B (RT-PCR) Negative (Negative) RSV (RT-PCR) Negative (Negative) SARS-CoV-2 RNA (RT-PCR) Negative (Negative) Discharge Plan Discharge Clinical Impression: Acute viral syndrome Patient Disposition: Home, Self-Care Condition: Stable Instructions: Antibiotic Form, Pharyngitis (ED), Viral Syndrome (ED) Additional Instructions: Tylenol and ibuprofen for pain control. Symptomatic treatment for the sore throat as directed. Have close follow-up with your primary care physician. Prescriptions: No Action ibuprofen 800 mg tablet 800 mg PO TID PRN (Reas
[2023-09-15 02:21] LABS: Influenza A QL RT-PCR Negative (Negative); Influenza B QL RT-PCR Negative (Negative); RSV RNA, RT-PCR Negative (Negative); SARS-CoV-2 RNA PCR Negative (Negative)
== END 2023-09-15 02:44 | disposition home or self-care (01) ==
PROVIDERS: Emergency Provider Emergency Medicine
DX: B34.9 Viral infection, unspecified (principal); Z20.822 Contact with and (suspected) exposure to COVID-19
CPT/HCPCS: 87637; 99283